=== PATIENT | female | born 1945 | race Caucasian/White ===

== ENCOUNTER 2023-10-07 01:56 | Outpatient (REF) | payer MEDICARE, SELFPAY | END 2023-10-07 01:57 | disposition home or self-care (01) | LOC: LAB 01:56 | PROVIDERS: PCP Family Medicine; Visit Provider Family Medicine | DX: R41.0 Disorientation, unspecified (principal); R53.83 Other fatigue | CPT/HCPCS: 87086 ==

== ENCOUNTER 2023-10-08 13:45 | Outpatient (REF) | payer MEDICARE, SELFPAY ==
[2023-10-08 14:32] LABS: Hematocrit 34.6 % (36.0-48.0); Hemoglobin 10.1 g/dL (12.0-16.0); Mean Corpuscular HGB Conc 29.2 g/dL (29.9-35.2); Mean Corpuscular Hemoglobin 30.2 pg (26.7-34.0); Mean Corpuscular Volume 103.6 fL (81.0-99.0); Mean Platelet Volume 13.4 fL (9.5-13.5); Platelet Count 99 10^3/uL (150-450); Red Blood Count 3.34 10^6/uL (4.20-5.40); Red Cell Distribution Width 21.3 % (11.0-15.0); White Blood Count 6.7 10^3/uL (4.0-11.0)
[2023-10-08 14:37] LABS: Anion Gap 12.5; BUN Creatinine Ratio 14.7; Calcium 9.6 mg/dL (8.5-10.1); Chloride 96 mmol/L (98-107); Estimated GFR (African America 45 (>=60); Estimated GFR (Non-African Ame 38 (>=60); Glucose 176 mg/dL (74-106); Potassium 3.5 mmol/L (3.5-5.1); Sodium 139 mmol/L (136-145)
[2023-10-08 16:17] LABS: Anisocytosis 1+; Band Neutrophils Absolute 0.1 10^3/uL (0.0-0.3); Macrocytosis 1+; Segmented Neut Absolute Manual 3.81 10^3/uL (1.4-6.5)
== END 2023-10-08 13:46 | disposition home or self-care (01) ==
LOC: LAB 13:45
PROVIDERS: PCP Family Medicine; Visit Provider Family Medicine
DX: I50.22 Chronic systolic (congestive) heart failure (principal); N18.32 Chronic kidney disease, stage 3b; D63.1 Anemia in chronic kidney disease; I12.9 Hypertensive chronic kidney disease with stage 1 through stage 4 chronic kidney disease, or unspecified chronic kidney disease
CPT/HCPCS: 36415; 80048; 85007; 85027